=== PATIENT | male | born 1990 | race Caucasian/White ===

== ENCOUNTER 2020-05-02 11:12 | Inpatient (IN) | payer SELFPAY ==
[2020-05-02] MEDS ORDERED: Morphine 4 MG/ML VIAL ONE (12:13)
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
[2020-05-02] MEDS ORDERED: Ondansetron PF 4 MG/2 ML Vial ONE (12:33)
[2020-05-02 12:37] LABS: Hemoglobin 16.8 g/dL (14.0-18.0); Mean Corpuscular HGB CONC 34.5 g/dL (32.0-36.0); Mean Platelet Volume 6.4 fL (7.4-10.4); Platelet Count 289 thou/uL (130-400); RBC Distribution Width 11.9 % (11.5-14.5); Red Blood Cell (RBC) Count 5.42 mill/uL (4.70-6.10); White Blood Cell (WBC) Count 21.4 thou/uL (4.8-10.8)
[2020-05-02 12:42] LABS: INR-International Normal Ratio 0.9; PTT 25.8 sec (22.9-36.1); Prothrombin Time 12.7 sec (12.0-14.7)
--- NOTE | 2020-05-02 12:59 | RAD ---
EXAM: Chest one view: HISTORY: Preoperative evaluation COMPARISON: 02/13/2007 FINDINGS: Heart size: Within normal limits. Lungs: Clear of acute process. No evidence for confluent lobar pneumonia, significant pleural effusion, acute edema, or pneumothorax , or other significant acute process. IMPRESSION: No significant acute intrathoracic disease.
[2020-05-02 13:03] LABS: ALT (SGPT) 29 U/L (8-55); AST (SGOT) 14 U/L (5-34); Albumin 4.5 g/dL (3.5-5.0); Alkaline Phosphatase 65 U/L (40-110); Anion Gap 16 mmol/L (10-20); BUN (Urea Nitrogen) 10 mg/dL (8.9-20.6); Bilirubin, Total 1.1 mg/dL (0.2-1.2); Calc. Creatinine Clearance 0 mL/min (70-130); Calcium 9.6 mg/dL (7.8-10.44); Carbon Dioxide 25 mmol/L (22-29); Chloride 99 mmol/L (98-107); Estimated GFR-MDRD Greater than 90; Globulin 3.2 g/dL (2.4-3.5); Glucose 123 mg/dL (70-105); Protein, Total 7.7 g/dL (6.0-8.3); Sodium 136 mmol/L (136-145)
[2020-05-02 13:11] LABS: Band 11 % (5-11); Eosinophils 1 % (0-10); Lymphocytes 4 % (21-51); MDiff Complete? YES; Monocytes 12 % (0-10); Neutrophil 68 % (42-75); Platelet Morphology Comment Appears Adequate; Polychromasia SLIGHT = 2-3 cells (100X) (0-2/hpf); Reactive Lymphocytes 4 % (0-10)
[2020-05-02] MEDS ORDERED: Clindamycin/D5W 900 mg/50 ml Premix Bag ONE (14:18)
[2020-05-02 15:26] LABS: SARS-CoV-2 NAA Rapid Test Not Detected (NotDetected)
[2020-05-02] MEDS ORDERED: traMADol HCl 50 MG TAB PO PRN ×2 (15:34)
[2020-05-02] MEDS ORDERED: Dextrose 50% Abboject 50 ML SYRINGE SLOW IVP PRN (15:34)
[2020-05-02] MEDS ORDERED: Ondansetron ODT 4 MG TAB PO PRN (15:34)
[2020-05-02] MEDS ORDERED: Cyclobenzaprine 10 MG TAB PO PRN (15:34)
[2020-05-02] MEDS ORDERED: Ondansetron PF 4 MG/2 ML Vial IVP PRN (15:34)
[2020-05-02] MEDS ORDERED: Dextrose 5% in Water 1,000 ML IV PRN (15:34)
[2020-05-02] MEDS: Sodium Chloride 0.9% 1,000 ML IV SCH (15:52)
[2020-05-02] MEDS ORDERED: Ketorolac Tromethamine 30 MG/ML VIAL IVP SCH (16:15)
[2020-05-02] MEDS: Dexamethasone 4 mg/ml Vial SLOW IVP SCH (16:28)
[2020-05-02] MEDS: Morphine 2 MG/ML VIAL SLOW IVP PRN ×2 (16:41→21:11)
[2020-05-02 16:51] VITALS: BMI 34.9
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
[2020-05-02] MEDS: Acetaminophen 500 MG TAB PO SCH (17:12)
[2020-05-02] MEDS ORDERED: Clindamycin/D5W 300 MG/50 ML BAG IVPB SCH (20:00)
[2020-05-02] MEDS ORDERED: Insulin Regular 300 UNITS/3 ML VIAL SC PRN ×2 (20:42)
[2020-05-02] MEDS ORDERED: Chlorhexidine Gluconate 15 ML UDCUP SSP SCH (21:00)
[2020-05-02] MEDS: Famotidine/PF 20 mg/2ml Vial SLOW IVP SCH (21:16)
[2020-05-02] MEDS: Clindamycin/D5W 600 MG in Premix Bag 1 BAG IVPB SCH (21:18)
[2020-05-02] MEDS: Chlorhexidine Gluconate 15 ML UDCUP SSP SCH (21:18)
[2020-05-02] MEDS ORDERED: Ibuprofen 600 MG TAB PO SCH (22:00)
[2020-05-03] MEDS: Acetaminophen 500 MG TAB PO SCH ×4 (00:44→18:16)
[2020-05-03] MEDS: Ketorolac Tromethamine 30 MG/ML VIAL IVP SCH ×4 (00:45→18:16)
[2020-05-03] MEDS: Dexamethasone 4 mg/ml Vial SLOW IVP SCH ×2 (00:48→08:41)
[2020-05-03] MEDS: Sodium Chloride 0.9% 1,000 ML IV SCH ×3 (00:50→14:56)
[2020-05-03] MEDS: Clindamycin/D5W 600 MG in Premix Bag 1 BAG IVPB SCH ×3 (05:38→21:55)
[2020-05-03] MEDS: Chlorhexidine Gluconate 15 ML UDCUP SSP SCH ×3 (08:41→21:54)
[2020-05-03] MEDS: Famotidine/PF 20 mg/2ml Vial SLOW IVP SCH ×2 (08:41→21:55)
[2020-05-03] MEDS ORDERED: FLU VACC QS2020-21(6MOS UP)/PF 60 MCG/0.5 ML SYRINGE IM ONE (09:00)
[2020-05-03 12:58] LABS: #Lymphocytes 0.8 thou/uL (1.20-3.40); #Monocytes 0.8 thou/uL (0.11-0.59); %Eosinophils 0.1 % (0.0-10.0); %Lymphocytes 4.4 % (21.0-51.0); %Monocytes 4.6 % (0.0-10.0); %Neutrophils 90.9 % (42.0-75.0); Hemoglobin 15.6 g/dL (14.0-18.0); Mean Corpuscular HGB CONC 33.1 g/dL (32.0-36.0); Mean Corpuscular Hemoglobin 30.7 pg (27.0-31.0); Mean Corpuscular Volume 92.8 fL (78.0-98.0); Mean Platelet Volume 7.8 fL (7.4-10.4); Platelet Count 153 thou/uL (130-400); Red Blood Cell (RBC) Count 5.08 mill/uL (4.70-6.10); White Blood Cell (WBC) Count 17.6 thou/uL (4.8-10.8)
[2020-05-03 13:20] LABS: Phosphorus 3.4 mg/dL (2.3-4.7)
[2020-05-03 13:21] LABS: Anion Gap 18 mmol/L (10-20); BUN (Urea Nitrogen) 13 mg/dL (8.9-20.6); Calc. Creatinine Clearance 245 mL/min (70-130); Calcium 8.9 mg/dL (7.8-10.44); Carbon Dioxide 14 mmol/L (22-29); Chloride 104 mmol/L (98-107); Estimated GFR-MDRD Greater than 90; Glucose 156 mg/dL (70-105); Magnesium 1.8 mg/dL (1.6-2.6); Potassium 4.7 mmol/L (3.5-5.1); Sodium 131 mmol/L (136-145)
[2020-05-03] MEDS: Morphine 2 MG/ML VIAL SLOW IVP PRN ×2 (17:13→21:54)
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
[2020-05-04] MEDS: Ketorolac Tromethamine 30 MG/ML VIAL IVP SCH ×4 (00:37→19:36)
[2020-05-04] MEDS: Acetaminophen 500 MG TAB PO SCH ×5 (00:38→22:10)
[2020-05-04] MEDS: Sodium Chloride 0.9% 1,000 ML IV SCH ×3 (00:44→19:41)
[2020-05-04] MEDS: Morphine 2 MG/ML VIAL SLOW IVP PRN ×3 (06:12→22:45)
[2020-05-04] MEDS: Clindamycin/D5W 600 MG in Premix Bag 1 BAG IVPB SCH ×3 (06:16→22:44)
[2020-05-04] MEDS: Famotidine/PF 20 mg/2ml Vial SLOW IVP SCH ×2 (09:28→22:09)
[2020-05-04] MEDS: Chlorhexidine Gluconate 15 ML UDCUP SSP SCH ×3 (09:32→22:09)
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
[2020-05-04] MEDS ORDERED: Ondansetron PF 4 MG/2 ML Vial ONE (11:36)
[2020-05-04] MEDS ORDERED: Glycopyrrolate 0.2 MG/ML 5 ML SYRINGE ONE (11:36)
[2020-05-04] MEDS ORDERED: PROPOFOL 200 MG/20 ML VIAL ONE (11:36)
[2020-05-04] MEDS ORDERED: Rocuronium Bromide 10 MG/ML (10ML VIAL) ONE (11:36)
[2020-05-04] MEDS ORDERED: Dexamethasone 20 MG/5 ML VIAL ONE (11:36)
[2020-05-04] MEDS ORDERED: Fentanyl 100 MCG/2 ML VIAL ONE ×2 (12:07→13:04)
[2020-05-04] MEDS ORDERED: AFRIN NASAL MIST 15 ML BOT ONE ×2 (13:06→13:22)
[2020-05-04] MEDS ORDERED: Lidocaine 1% w/Epinephrine 1:100K 20 ML VIAL ONE ×2 (13:20→13:39)
[2020-05-04] MEDS ORDERED: Fentanyl 250 MCG/5 ML VIAL ONE (13:22)
[2020-05-04] MEDS ORDERED: Chlorhexidine Gluconate 15 ML UDCUP SSP ONE (13:39)
[2020-05-04] MEDS ORDERED: Sodium Chloride 0.9% 10 ML ONE (14:32)
[2020-05-04] MEDS ORDERED: HYDROmorphone 2 MG/ML VIAL ONE (15:59)
[2020-05-04] MEDS ORDERED: EPINEPHrine 1 MG/ML AMP ONE (16:07)
[2020-05-04] MEDS ORDERED: Bupivacaine PF 0.5% 30 ML VIAL ONE (16:07)
[2020-05-04] MEDS ORDERED: Bacitracin Zinc Ointment 30 gm TUBE ONE (16:38)
[2020-05-04] MEDS ORDERED: Midazolam HCl 2 mg/2 ml Vial ONE (17:03)
[2020-05-04] MEDS ORDERED: Morphine Sulfate 2 MG/ML SYRINGE SLOW IVP PRN (17:09)
[2020-05-04] MEDS ORDERED: Meperidine HCl/PF 25 MG/ML VIAL SLOW IVP PRN (17:09)
[2020-05-04] MEDS ORDERED: Ketorolac Tromethamine 30 MG/ML VIAL IVP PRN (17:09)
[2020-05-04] MEDS ORDERED: PACU-Morphine 4MG/ML VIAL SLOW IVP PRN (17:09)
[2020-05-04] MEDS ORDERED: HYDROmorphone 2 MG/ML VIAL SLOW IVP PRN (17:09)
[2020-05-04] MEDS ORDERED: Promethazine HCl 25 MG/ML VIAL SLOW IVP PRN (17:09)
[2020-05-04] MEDS ORDERED: Ondansetron HCl/PF 4 MG/2 ML Vial IVP PRN (17:09)
[2020-05-04] MEDS ORDERED: Promethazine HCl 25 MG/ML VIAL IM PRN (17:09)
[2020-05-05] MEDS: Acetaminophen 500 MG TAB PO SCH ×2 (00:29→06:39)
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
[2020-05-05] MEDS: Morphine 2 MG/ML VIAL SLOW IVP PRN (05:22)
[2020-05-05] MEDS: Clindamycin/D5W 600 MG in Premix Bag 1 BAG IVPB SCH ×2 (05:22→13:20)
[2020-05-05] MEDS ORDERED: Promethazine HCl 25 MG in Sodium Chloride 0.9% 50 ML IVPB PRN (05:35)
[2020-05-05] MEDS: Ondansetron PF 4 MG/2 ML Vial IVP PRN ×2 (05:50→13:29)
[2020-05-05] MEDS: Sodium Chloride 0.9% 1,000 ML IV SCH ×2 (05:51→13:26)
[2020-05-05] MEDS ORDERED: Ibuprofen 600 MG TAB PO SCH (06:00)
[2020-05-05] MEDS ORDERED: Scopolamine 1.5 mg/72 hour Patch TD SCH (07:00)
[2020-05-05] MEDS ORDERED: Acetaminophen W/ Codeine 5 ML UDCUP PO PRN (08:58)
[2020-05-05] MEDS: Chlorhexidine Gluconate 15 ML UDCUP SSP SCH ×2 (10:08→15:17)
[2020-05-05] MEDS: Famotidine/PF 20 mg/2ml Vial SLOW IVP SCH (10:08)
[2020-05-05 11:38] VITALS: BP 162/85; TEMP 98.1
[2020-05-05] MEDS ORDERED: Acetaminophen W/ Codeine 5 ML UDCUP PO SCH (12:00)
[2020-05-05] MEDS ORDERED: Ibuprofen 100 MG/5 ML UDCUP PO SCH (14:00)
[2020-05-05 14:08] LABS: #Lymphocytes 1.4 thou/uL (1.20-3.40); #Monocytes 1.7 thou/uL (0.11-0.59); #Neutrophils 13.2 thou/uL (1.40-6.50); %Eosinophils 0.1 % (0.0-10.0); %Lymphocytes 8.3 % (21.0-51.0); %Monocytes 10.2 % (0.0-10.0); %Neutrophils 81.3 % (42.0-75.0); Hemoglobin 14.4 g/dL (14.0-18.0); Mean Corpuscular HGB CONC 34.1 g/dL (32.0-36.0); Mean Corpuscular Hemoglobin 30.9 pg (27.0-31.0); Mean Corpuscular Volume 90.6 fL (78.0-98.0); Mean Platelet Volume 6.8 fL (7.4-10.4); Platelet Count 247 thou/uL (130-400); RBC Distribution Width 11.7 % (11.5-14.5); Red Blood Cell (RBC) Count 4.65 mill/uL (4.70-6.10); White Blood Cell (WBC) Count 16.2 thou/uL (4.8-10.8)
[2020-05-05 14:26] LABS: Anion Gap 15 mmol/L (10-20); BUN (Urea Nitrogen) 10 mg/dL (8.9-20.6); Calc. Creatinine Clearance 230 mL/min (70-130); Calcium 8.6 mg/dL (7.8-10.44); Carbon Dioxide 26 mmol/L (22-29); Chloride 100 mmol/L (98-107); Estimated GFR-MDRD Greater than 90; Glucose 158 mg/dL (70-105); Magnesium 1.8 mg/dL (1.6-2.6); Phosphorus 3.4 mg/dL (2.3-4.7); Potassium 3.9 mmol/L (3.5-5.1); Sodium 137 mmol/L (136-145)
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
== END 2020-05-05 15:16 | disposition home or self-care (01) | DRG 142 ==
LOC: ERS 11:12 → 3SE 14:06 → SURG B 05-04 22:01
PROVIDERS: ADMIT Surgery; ATTEND Surgery
PROC: 0NSV04Z Reposition Left Mandible with Internal Fixation Device, Open Approach (ICD-10-PCS; principal; 2020-05-04)
PROC: 0NST04Z Reposition Right Mandible with Internal Fixation Device, Open Approach (ICD-10-PCS; 2020-05-04)
PROC: 0CDXXZ1 Extraction of Lower Tooth, Multiple, External Approach (ICD-10-PCS; 2020-05-04)
DX: S02.609B Fracture of mandible, unspecified, initial encounter for open fracture (principal); I10 Essential (primary) hypertension; F17.210 Nicotine dependence, cigarettes, uncomplicated; M10.9 Gout, unspecified; F41.9 Anxiety disorder, unspecified; G56.00 Carpal tunnel syndrome, unspecified upper limb; E11.9 Type 2 diabetes mellitus without complications; Y09 Assault by unspecified means; Z20.828 Contact with and (suspected) exposure to other viral communicable diseases
CPT/HCPCS: 36415; 36416; 70486; 71045; 76377; 80048; 80053; 83735; 84100; 85025; 85610; 85730; 96361; 96365; 96375; C1713; J0171; J1100; J1170; J1885; J2250; J2270; J2405; J2550; J2704; J3010; J3490; Q0162; S0020; S0028; U0002